=== PATIENT | male | born 1955 | race Caucasian/White ===

== ENCOUNTER 2018-07-26 15:52 | Emergency (ER) | payer OTHER, BC ==
[2018-07-26] MEDS ORDERED: DIPH/PERTUSS(ACELL)/TETANUS VAC/PF 0.5 ML SYR (>=10YO) IM ONE (17:32)
--- NOTE | 2018-07-26 17:32 | ER Document Report ---
ED Medical Screen (RME) - General Chief Complaint: Laceration Stated Complaint: HAND LACERATION Time Seen by Provider: 07/26/18 17:30 Notes: 62 years old male presents today with laceration of the right hand chest distal to the third and second metacarpal phalangeal joint region. TRAVEL OUTSIDE OF THE [place] IN LAST 30 DAYS: No - Related Data Allergies/Adverse Reactions: No Known Allergies Allergy (Verified 07/26/18 15:58) Past Medical History - Social History Chew tobacco use (# tins/day): No Frequency of alcohol use: Occasional Drug Abuse: None Renal/ Medical History: Reports: Hx Peritoneal Dialysis Musculoskeltal Medical History: Reports Hx Arthritis, Reports Hx Gout - Immunizations Hx Diphtheria, Pertussis, Tetanus Vaccination: Yes Physical Exam - Vital signs Vitals: Temp Pulse Resp BP Pulse Ox 98.8 F 93 14 160/91 H 98 07/26/18 16:09 07/26/18 16:09 07/26/18 16:09 07/26/18 16:09 07/26/18 16:09 Course - Vital Signs Vital signs: Temp Pulse Resp BP Pulse Ox 98.8 F 93 14 160/91 H 98 07/26/18 16:09 07/26/18 16:09 07/26/18 16:09 07/26/18 16:09 07/26/18 16:09
[2018-07-26] MEDS ORDERED: LIDOCAINE 1% INJ-PF (10 MG/ML) 30 ML SDV INJ ONE (18:51)
[2018-07-26] MEDS ORDERED: OXYCODONE-ACETAMINOPHEN 5-325 MG TABLET PO ONE (18:54)
[2018-07-26] MEDS ORDERED: IBUPROFEN 800 MG TABLET PO ONE (18:54)
--- NOTE | 2018-07-26 18:58 | ER Document Report ---
ED General - General Chief Complaint: Laceration Stated Complaint: HAND LACERATION Time Seen by Provider: 07/26/18 17:30 Primary Care Provider: EDUARD MENDEZ DO [Primary Care Provider] - Follow up as needed Mode of Arrival: Ambulatory Information source: Patient TRAVEL OUTSIDE OF THE [place] IN LAST 30 DAYS: No - HPI Patient complains to provider of: Right hand injury/laceration to the dorsal aspect Onset: Just prior to arrival Onset/Duration: Sudden Quality of pain: Sharp Severity: Severe Associated symptoms: None Exacerbated by: Denies Relieved by: Denies Notes: Generally healthy 62-year-old male comes in today with right hand injury with laceration. States he was lifting a heavy metal box and it slid while he was lifting it and it crushed his right hand and also lacerated the dorsal aspect. Last tetanus shot was over 5 years ago. Has already gotten DTaP today. He is right-hand dominant. - Related Data Allergies/Adverse Reactions: No Known Allergies Allergy (Verified 07/26/18 15:58) Past Medical History - General Information source: Patient - Social History Smoking Status: Never Smoker Chew tobacco use (# tins/day): No Frequency of alcohol use: Occasional Drug Abuse: None Family History: Reviewed & Not Pertinent Patient has suicidal ideation: No Patient has homicidal ideation: No Renal/ Medical History: Reports: Hx Peritoneal Dialysis Musculoskeletal Medical History: Reports Hx Arthritis, Reports Hx Gout - Immunizations Hx Diphtheria, Pertussis, Tetanus Vaccination: Yes Review of Systems - Review of Systems Notes: Constitutional: No fevers. No chills. EENT: No eye redness. No eye pain. No ear pain. No sore throat. Cardiovascular: No chest pain. No palpitations. Respiratory: No cough. No shortness of breath. No respiratory distress. Gastrointestinal: No abdominal pain. No nausea, vomiting, or diarrhea. Genitourinary: Atraumatic. No lesions. No pain. No discharge. Musculoskeletal: Right hand pain, right hand laceration Skin: No rash or lesions. Lymphatic: No swollen lymph nodes. Neurologic: No headache. No syncope. Psychiatric: No suicidal or homicidal ideation. Physical Exam - Vital signs Vitals: Temp Pulse Resp BP Pulse Ox 98.8 F 93 14 160/91 H 98 07/26/18 16:09 07/26/18 16:09 07/26/18 16:09 07/26/18 16:07/26/18 16:09 - Notes Notes: General: Well-developed, well-nourished. In no acute distress. Non-toxic appearing. Cardiac: Well-perfused. Regular rate and rhythm. No murmurs, rubs, or gallops. Pulmonary: No respiratory distress. No cyanosis. Bilateral lung fiels are clear to auscultation. Abdominal: Non-distended. Non-rigid. Bowels sounds are present in all four quadrants. No guarding or rebound. HEENT: Head is atraumatic. Conjunctivae not reddened. No tearing. PERRL. EOMI. Orbits atraumatic. No periorbital swelling or erythema. Oropharynx is without erythema, swelling, or exudates. Neck: Supple. No adenopathy. No meningismus. Dermatologic: Warm with good turgor. No rash. Atraumatic. Chest: Atraumatic. No chest wall tenderness to palpation. Musculoskeletal: There is a curvilinear laceration which is approximately 3.5 cm to the dorsum of the right hand over the second and third metacarpal region. There is no active bleeding. The patient is able to fully flex and fully extend actively all of his digits. He has intact distal sensation to all of his digits. Genitourinary: Examination deferred Neurologic: No gross neurologic deficits. Psychiatric: Normal mood. Course - Re-evaluation Re-evalutation: 07/26/18 18:58 The mechanism of the injury was a crush nature. We will go ahead and get a plain x-ray of his hand to rule out any bony injury. Then we will go ahead and numb him up and explore deeply for any tendon injury. He will need to be flushed vigorously and sutured. - Vital Signs Vital signs: Temp Pulse Resp BP Pulse Ox 98.8 F 93 14 160/91 H 98 07/26/18 16:07/26/18 16:07/26/18 16:07/26/18 16:07/26/18 16:09 Procedures - Laceration/Wound Repair Right Dorsal Hand Time completed: 19:40 Wound length (cm): 3.5 Wound's Depth, Shape: Other - curvilinear Laceration pre-procedure: Sterile PPE donned, Sterile drapes applied, Shur-Clens applied Anesthetic type: 1% Lidocaine Volume Anesthetic (mLs): 10 Wound explored: Clean, No foreign body removed Wound Repaired With: Sutures Suture Size/Type: 4:0, Prolene Number of Sutures: 7 Layer Closure?: No Post-procedure wound care: Sterile dressing applied Post-procedure NV exam normal: Yes Complications: No Discharge - Discharge Clinical Impression: Crush injury of hand Qualifiers: Encounter type: initial encounter Laterality: right Qualified Code(s): S67.21XA - Crushing injury of right hand, initial encounter Hand laceration Qualifiers: Encounter type: initial encounter Foreign body presence: without foreign body Laterality: right Qualified Code(s): S61.411A - Laceration without foreign body of right hand, initial encounter Condition: Good Disposition: HOME, SELF-CARE Instructions: Antibiotic Ointment Protection ([facility]), Laceration Care ([facility]), Soap Cleansing ([facility]), Tetanus Immunization Given ([facility]) Referrals: EDUARD MENDEZ, [Primary Care Provider] - Follow up as needed PRIMARY CARE DOCTOR, YOUR [Other] - 08/05/18
--- NOTE | 2018-07-26 19:18 | RADIOLOGY REPORT (SQ) ---
EXAM DESCRIPTION: HAND RIGHT 3 VIEWS COMPLETED DATE/TIME: 07/26/2018 7:00 pm REASON FOR STUDY: crush injury COMPARISON: None. EXAM PARAMETERS: NUMBER OF VIEWS: Three views. TECHNIQUE: AP, lateral and oblique radiographic images acquired of the right hand. LIMITATIONS: None. FINDINGS: MINERALIZATION: Normal. BONES: No acute fracture or dislocation. No worrisome bone lesions. JOINTS: No effusions. SOFT TISSUES: No soft tissue swelling. No foreign body. OTHER: No other significant finding. IMPRESSION: NEGATIVE STUDY OF THE RIGHT HAND. NO RADIOGRAPHIC EVIDENCE OF ACUTE INJURY. TECHNICAL DOCUMENTATION: JOB ID: [id number] [email or web address]- All Rights Reserved Reading location - IP/workstation name: [email or web address]
[2018-07-26 20:06] VITALS: BP 145/97
== END 2018-07-26 20:08 | disposition home or self-care (01) ==
LOC: ER 15:52
PROC: 0HQFXZZ Repair Right Hand Skin, External Approach (ICD-10-PCS; principal; 2018-07-26)
DX: S67.21XA Crushing injury of right hand, initial encounter (principal); S61.411A Laceration without foreign body of right hand, initial encounter; X50.0XXA Overexertion from strenuous movement or load, initial encounter
CPT/HCPCS: 99283; 73130; 90715; 12002; J3490